=== PATIENT | male | born 1950 | race Caucasian/White ===

== ENCOUNTER 2017-12-15 19:18 | Inpatient (IN) | payer MEDICARE, OTHER ==
[~2017-12-15] VITALS: Ht 185.4 cm; Wt 79.8 kg
[2017-12-15 20:00] VITALS: BP 105/53
[2017-12-15 20:00] LABS: BASOPHILS # (AUTO) 0.1 K/uL (0.0-8.0); BASOPHILS % (AUTO) 0.9 % (0.0-2.0); EOSINOPHILS # (AUTO) 0.1 K/uL (0.0-0.7); EOSINOPHILS % (AUTO) 0.8 % (0.0-7.0); HEMATOCRIT 42.1 % (36.7-47.1); HEMOGLOBIN 14.4 g/dL (12.5-16.3); LYMPHOCYTES # (AUTO) 1.5 K/uL (20.0-40.0); LYMPHOCYTES % (AUTO) 17.7 % (20.5-51.5); MEAN CORPUSCULAR HEMOGLOBIN 32.1 uug (23.8-33.4); MEAN CORPUSCULAR HGB CONC 34 g/dL (32.5-36.3); MEAN CORPUSCULAR VOLUME 93.5 fL (73.0-96.2); MONOCYTES # (AUTO) 0.7 K/uL (2.0-10.0); MONOCYTES % (AUTO) 8.5 % (0.0-11.0); NEUTROPHILS # (AUTO) 6.1 K/uL (1.8-8.9); NEUTROPHILS % (AUTO) 72.1 % (38.5-71.5); PLATELET COUNT (AUTO) 206 K/uL (152-348); WHITE BLOOD COUNT (AUTO) 8.4 K/uL (3.6-10.2)
[2017-12-15 20:08] LABS: CARBON DIOXIDE 24 mmol/L (21-32); CHLORIDE 104 mmol/L (98-107); CREATININE 0.9 mg/dL (0.6-1.3); GLUCOSE 115 mg/dL (74-106); POTASSIUM 3.1 mmol/L (3.5-5.1); UREA NITROGEN, BLOOD 6 mg/dL (7-18)
[2017-12-15] MEDS ORDERED: DIPH50CA37 GT (20:12)
[2017-12-15] MEDS ORDERED: ACET-2154 PO (20:12)
[2017-12-15] MEDS ORDERED: HYDR12.5 PO (20:12)
[2017-12-15] MEDS ORDERED: ATOR40TA PO (20:12)
[2017-12-15] MEDS ORDERED: CHOL10002 PO (20:12)
[2017-12-15] MEDS ORDERED: PENT400T12 PO (20:12)
[2017-12-15] MEDS ORDERED: OLAN15TA3 PO (20:12)
[2017-12-15] MEDS ORDERED: TERA2CAP4 PO (20:12)
[2017-12-15] MEDS ORDERED: BUPROPION HCL PO (20:12)
[2017-12-15] MEDS ORDERED: SENN-18 PO (20:12)
[2017-12-15 20:13] LABS: ALANINE AMINOTRANSFERASE 12 U/L (16-63); ALKALINE PHOSPHATASE 83 U/L (50-136); ASPARTATE AMINOTRANSFERASE 9 U/L (15-37); BILIRUBIN,DIRECT 0.2 mg/dL (0.0-0.2); BILIRUBIN,TOTAL 0.5 mg/dL (0.2-1.0); TOTAL PROTEIN, SERUM 6.7 g/dL (6.4-8.2)
[2017-12-15 20:15] LABS: ACETAMINOPHEN < 2.0 ug/mL (10-30)
[2017-12-15 20:16] LABS: ETHANOL < 3 MG/DL (0-0)
[2017-12-15 20:18] LABS: *BILIRUBIN,URIN NEGATIVE (NEGATIVE); *BLOOD, URINE NEGATIVE (NEGATIVE); *CLARITY,URINE CLEAR (CLEAR); *COLOR,URINE YELLOW (YELLOW); *KETONES,URINE NEGATIVE (NEGATIVE); *PROTEIN,URINE NEGATIVE (NEGATIVE); LEUKOCYTE ESTERASE ,URINE NEGATIVE (NEGATIVE); NITRITE, URINE NEGATIVE (NEGATIVE); UGLUCOSE NEGATIVE (NEGATIVE)
[2017-12-15 20:24] LABS: RBC,URINE 0-3 /HPF (0-3); WBC,URINE NONE SEEN /HPF (0-3)
[2017-12-15 20:29] LABS: *AMPHETAMINE, URINE NEGATIVE (NEGATIVE); *BARBITURATE, URINE NEGATIVE (NEGATIVE); *CANNABINOID, URINE NEGATIVE (NEGATIVE); *COCCAINE, URINE NEGATIVE (NEGATIVE); *OPIATE, URINE NEGATIVE (NEGATIVE); *PHENCYCLIDINE SCREEN,URINE NEGATIVE (NEGATIVE)
[2017-12-15] MEDS ORDERED: POTASSIUM CHLORIDE 10 MEQ TAB.PRT.SR PO ONE (20:30)
[2017-12-15] MEDS ORDERED: POTASSIUM CHLORIDE 10 MEQ TAB.PRT.SR ONE (20:40)
[2017-12-15] MEDS ORDERED: MAG HYDROX/AL HYDROX/SIMETH 30 ML LIQUID UDC PO PRN (21:30)
[2017-12-15] MEDS ORDERED: MAGNESIUM HYDROXIDE 30 ML LIQUID UDC PO PRN (21:30)
[2017-12-15] MEDS: CLONAZEPAM 0.5 MG TABLET PO PRN (21:49)
[2017-12-15] MEDS ORDERED: SENNOSIDES 1 TABLET PO PRN (23:00)
[2017-12-16 01:34] VITALS: BP 105/53
[2017-12-16 07:30] VITALS: BP 125/73
[2017-12-16] MEDS: HYDROCHLOROTHIAZIDE 12.5 MG CAPSULE PO SCH ×2 (08:25→08:57)
[2017-12-16] MEDS: CHOLECALCIFEROL 1,000 UNIT TABLET PO SCH ×2 (08:25→08:57)
[2017-12-16] MEDS: PENTOXIFYLLINE 400 MG TABLET.SA PO SCH ×5 (08:45→16:23)
[2017-12-16 09:49] LABS: BASOPHILS # (AUTO) 0.1 K/uL (0.0-8.0); BASOPHILS % (AUTO) 0.8 % (0.0-2.0); EOSINOPHILS # (AUTO) 0.1 K/uL (0.0-0.7); EOSINOPHILS % (AUTO) 1.2 % (0.0-7.0); HEMATOCRIT 43.9 % (36.7-47.1); HEMOGLOBIN 15.2 g/dL (12.5-16.3); LYMPHOCYTES # (AUTO) 1.4 K/uL (20.0-40.0); MEAN CORPUSCULAR HEMOGLOBIN 32.6 uug (23.8-33.4); MEAN CORPUSCULAR HGB CONC 35 g/dL (32.5-36.3); MEAN CORPUSCULAR VOLUME 94.1 fL (73.0-96.2); MONOCYTES # (AUTO) 0.5 K/uL (2.0-10.0); MONOCYTES % (AUTO) 6.9 % (0.0-11.0); NEUTROPHILS # (AUTO) 5.6 K/uL (1.8-8.9); NEUTROPHILS % (AUTO) 73.1 % (38.5-71.5); PLATELET COUNT (AUTO) 224 K/uL (152-348); RED BLOOD CELL COUNT(AUTO) 4.67 MIL/uL (4.06-5.63); WHITE BLOOD COUNT (AUTO) 7.6 K/uL (3.6-10.2)
[2017-12-16 10:15] LABS: THYROID STIMULATING HORMONE 0.982 mIU/mL (0.358-3.740)
[2017-12-16 10:30] LABS: BILIRUBIN,TOTAL 0.6 mg/dL (0.2-1.0); CREATININE 1.1 mg/dL (0.6-1.3); POTASSIUM 3.8 mmol/L (3.5-5.1); TOTAL PROTEIN, SERUM 6.9 g/dL (6.4-8.2)
[2017-12-16] MEDS: DIVALPROEX 250 MG TABLET.DR PO SCH ×3 (11:13→16:23)
[2017-12-16 16:03] VITALS: BP 138/59
[2017-12-16] MEDS ORDERED: NEUTRA PHOS PACKET PO ONE (16:45)
[2017-12-16 20:22] VITALS: BP 167/71
[2017-12-16] MEDS ORDERED: OLANZAPINE 5 MG TABLET PO SCH (21:00)
[2017-12-16] MEDS: TERAZOSIN 1 MG CAPSULE PO SCH (21:07)
[2017-12-16] MEDS ORDERED: ATORVASTATIN 40 MG TABLET ONE (21:24)
[2017-12-16] MEDS: ATORVASTATIN 40 MG TABLET PO SCH (21:25)
[2017-12-17 07:30] VITALS: BP 165/85
[2017-12-17] MEDS: DIVALPROEX 250 MG TABLET.DR PO SCH (08:49)
[2017-12-17] MEDS: HYDROCHLOROTHIAZIDE 12.5 MG CAPSULE PO SCH (08:50)
[2017-12-17] MEDS: CHOLECALCIFEROL 1,000 UNIT TABLET PO SCH (08:50)
[2017-12-17] MEDS: PENTOXIFYLLINE 400 MG TABLET.SA PO SCH ×3 (08:50→17:00)
[2017-12-17] MEDS ORDERED: OLANZAPINE 10 MG VIAL IM ONE (09:30)
[2017-12-17] MEDS ORDERED: LORAZEPAM 2 MG/1 ML VIAL IM ONE (09:30)
[2017-12-17] MEDS ORDERED: CLONIDINE HCL 0.1 MG TABLET PO PRN (10:45)
[2017-12-17] MEDS: DIVALPROEX 500 MG TABLET.DR PO SCH ×2 (12:47→17:06)
[2017-12-17] MEDS ORDERED: DIVALPROEX 250 MG TABLET.DR PO SCH (13:00)
[2017-12-17 16:00] VITALS: BP_SYST 68
[2017-12-17 21:38] VITALS: BP 140/64
[2017-12-17] MEDS: TERAZOSIN 1 MG CAPSULE PO SCH (21:52)
[2017-12-17] MEDS: ATORVASTATIN 40 MG TABLET PO SCH (21:52)
[2017-12-17] MEDS: OLANZAPINE 5 MG TABLET PO SCH (21:53)
[2017-12-17] MEDS: TEMAZEPAM 7.5 MG CAPSULE PO PRN (22:19)
[2017-12-18 07:30] VITALS: BP 135/81
[2017-12-18] MEDS: DIVALPROEX 500 MG TABLET.DR PO SCH ×3 (08:39→17:25)
[2017-12-18] MEDS: PENTOXIFYLLINE 400 MG TABLET.SA PO SCH ×3 (08:47→17:00)
[2017-12-18] MEDS: CHOLECALCIFEROL 1,000 UNIT TABLET PO SCH (08:47)
[2017-12-18] MEDS: HYDROCHLOROTHIAZIDE 12.5 MG CAPSULE PO SCH (08:47)
[2017-12-18 15:46] VITALS: BP 166/86
[2017-12-18] MEDS: CLONAZEPAM 0.5 MG TABLET PO PRN (17:24)
[2017-12-18] MEDS: ATORVASTATIN 40 MG TABLET PO SCH (20:37)
[2017-12-18] MEDS: OLANZAPINE 5 MG TABLET PO SCH (20:37)
[2017-12-18] MEDS: TERAZOSIN 1 MG CAPSULE PO SCH (20:37)
[2017-12-18 21:43] VITALS: BP 125/72
[2017-12-19] MEDS: TEMAZEPAM 7.5 MG CAPSULE PO PRN ×2 (01:19→23:34)
[2017-12-19] MEDS: ACETAMINOPHEN 325 MG TABLET PO PRN (01:19)
[2017-12-19 07:30] VITALS: BP 117/64
[2017-12-19] MEDS: DIVALPROEX 500 MG TABLET.DR PO SCH ×3 (08:32→17:30)
[2017-12-19] MEDS: PENTOXIFYLLINE 400 MG TABLET.SA PO SCH ×3 (08:41→17:00)
[2017-12-19] MEDS: CHOLECALCIFEROL 1,000 UNIT TABLET PO SCH (08:41)
[2017-12-19] MEDS: HYDROCHLOROTHIAZIDE 12.5 MG CAPSULE PO SCH (08:41)
[2017-12-19 15:41] VITALS: BP 152/73
[2017-12-19 20:00] VITALS: BP 140/60
[2017-12-19] MEDS: OLANZAPINE 5 MG TABLET PO SCH (20:57)
[2017-12-19] MEDS: ATORVASTATIN 40 MG TABLET PO SCH (21:00)
[2017-12-19] MEDS: TERAZOSIN 1 MG CAPSULE PO SCH (21:00)
[2017-12-20 07:28] LABS: BASOPHILS % (AUTO) 0.6 % (0.0-2.0); EOSINOPHILS # (AUTO) 0.3 K/uL (0.0-0.7); EOSINOPHILS % (AUTO) 3.2 % (0.0-7.0); HEMATOCRIT 44.6 % (36.7-47.1); LYMPHOCYTES # (AUTO) 2.2 K/uL (20.0-40.0); LYMPHOCYTES % (AUTO) 27.3 % (20.5-51.5); MEAN CORPUSCULAR HEMOGLOBIN 31.8 uug (23.8-33.4); MEAN CORPUSCULAR HGB CONC 34 g/dL (32.5-36.3); MEAN CORPUSCULAR VOLUME 94.5 fL (73.0-96.2); MONOCYTES # (AUTO) 0.6 K/uL (2.0-10.0); NEUTROPHILS # (AUTO) 4.9 K/uL (1.8-8.9); NEUTROPHILS % (AUTO) 61.9 % (38.5-71.5); PLATELET COUNT (AUTO) 230 K/uL (152-348); RED BLOOD CELL COUNT(AUTO) 4.72 MIL/uL (4.06-5.63); WHITE BLOOD COUNT (AUTO) 7.9 K/uL (3.6-10.2)
[2017-12-20 07:30] VITALS: BP 157/84
[2017-12-20 07:44] LABS: BILIRUBIN,TOTAL 0.4 mg/dL (0.2-1.0); PHOSPHOROUS 3.1 mg/dL (2.5-4.9); POTASSIUM 4.3 mmol/L (3.5-5.1); TOTAL PROTEIN, SERUM 7.1 g/dL (6.4-8.2)
[2017-12-20] MEDS: DIVALPROEX 500 MG TABLET.DR PO SCH ×3 (08:48→17:39)
[2017-12-20] MEDS: PENTOXIFYLLINE 400 MG TABLET.SA PO SCH ×3 (08:51→17:00)
[2017-12-20] MEDS: CHOLECALCIFEROL 1,000 UNIT TABLET PO SCH (08:51)
[2017-12-20] MEDS: HYDROCHLOROTHIAZIDE 12.5 MG CAPSULE PO SCH (08:51)
[2017-12-20 15:50] VITALS: BP 172/81
[2017-12-20] MEDS ORDERED: CLONIDINE-TTS 1 PATCH TD SCH (16:30)
[2017-12-20 21:24] VITALS: BP 149/82
[2017-12-20] MEDS: OLANZAPINE 5 MG TABLET PO SCH (21:32)
[2017-12-20] MEDS: ATORVASTATIN 40 MG TABLET PO SCH (21:32)
[2017-12-20] MEDS: TERAZOSIN 1 MG CAPSULE PO SCH (21:32)
[2017-12-21] MEDS: TEMAZEPAM 7.5 MG CAPSULE PO PRN (01:11)
[2017-12-21] MEDS: ACETAMINOPHEN 325 MG TABLET PO PRN (01:11)
[2017-12-21 07:30] VITALS: BP 144/76
[2017-12-21] MEDS: PENTOXIFYLLINE 400 MG TABLET.SA PO SCH ×3 (09:00→17:20)
[2017-12-21] MEDS: HYDROCHLOROTHIAZIDE 12.5 MG CAPSULE PO SCH (09:00)
[2017-12-21] MEDS: CHOLECALCIFEROL 1,000 UNIT TABLET PO SCH (09:00)
[2017-12-21] MEDS: DIVALPROEX 500 MG TABLET.DR PO SCH ×3 (09:10→17:20)
[2017-12-21 16:49] VITALS: BP 134/92
[2017-12-21 19:30] VITALS: BP 144/71
[2017-12-21] MEDS: ATORVASTATIN 40 MG TABLET PO SCH (21:37)
[2017-12-21] MEDS: OLANZAPINE 5 MG TABLET PO SCH (21:37)
[2017-12-21] MEDS: TERAZOSIN 1 MG CAPSULE PO SCH (21:38)
[2017-12-22 07:30] VITALS: BP 156/88
[2017-12-22] MEDS: PENTOXIFYLLINE 400 MG TABLET.SA PO SCH ×3 (08:23→16:10)
[2017-12-22] MEDS: HYDROCHLOROTHIAZIDE 12.5 MG CAPSULE PO SCH ×2 (08:23→08:30)
[2017-12-22] MEDS: DIVALPROEX 500 MG TABLET.DR PO SCH ×3 (08:23→16:10)
[2017-12-22] MEDS: CHOLECALCIFEROL 1,000 UNIT TABLET PO SCH ×2 (08:23→08:30)
[2017-12-22 15:48] VITALS: BP 147/66
[2017-12-22 19:30] VITALS: BP 157/79
[2017-12-22] MEDS: OLANZAPINE 5 MG TABLET PO SCH (20:45)
[2017-12-22] MEDS: ATORVASTATIN 40 MG TABLET PO SCH (20:46)
[2017-12-22] MEDS: TERAZOSIN 1 MG CAPSULE PO SCH (20:50)
[2017-12-23] MEDS: TEMAZEPAM 7.5 MG CAPSULE PO PRN (01:32)
[2017-12-23 07:30] VITALS: BP 163/79
[2017-12-23] MEDS: PENTOXIFYLLINE 400 MG TABLET.SA PO SCH ×3 (09:00→18:15)
[2017-12-23] MEDS: CHOLECALCIFEROL 1,000 UNIT TABLET PO SCH (09:00)
[2017-12-23] MEDS: HYDROCHLOROTHIAZIDE 12.5 MG CAPSULE PO SCH (09:57)
[2017-12-23] MEDS: DIVALPROEX 500 MG TABLET.DR PO SCH ×3 (09:57→18:15)
[2017-12-23 15:00] VITALS: BP 162/67
[2017-12-23 19:58] VITALS: BP 147/71
[2017-12-23] MEDS: OLANZAPINE 5 MG TABLET PO SCH (20:35)
[2017-12-23] MEDS: ATORVASTATIN 40 MG TABLET PO SCH (20:35)
[2017-12-23] MEDS: TERAZOSIN 1 MG CAPSULE PO SCH (20:41)
[2017-12-24] MEDS: CLONAZEPAM 0.5 MG TABLET PO PRN (03:23)
[2017-12-24] MEDS: DIVALPROEX 500 MG TABLET.DR PO SCH ×2 (08:36→13:09)
[2017-12-24] MEDS: CHOLECALCIFEROL 1,000 UNIT TABLET PO SCH (08:39)
[2017-12-24] MEDS: HYDROCHLOROTHIAZIDE 12.5 MG CAPSULE PO SCH (08:39)
[2017-12-24] MEDS: PENTOXIFYLLINE 400 MG TABLET.SA PO SCH ×2 (08:39→13:00)
[2017-12-24 09:03] VITALS: BP 100/72
[2017-12-24 10:39] VITALS: BP 100/72
== END 2017-12-24 13:15 | DRG 885 ==
LOC: ER 19:21 → GPS 20:57
PROVIDERS: ADMIT Psychiatry & Neurology Psychiatry; ATTEND Nurse Practitioner Acute Care
DX: F25.9 Schizoaffective disorder, unspecified (principal); E44.0 Moderate protein-calorie malnutrition; F31.9 Bipolar disorder, unspecified; E78.5 Hyperlipidemia, unspecified; E83.39 Other disorders of phosphorus metabolism; E87.6 Hypokalemia; F17.200 Nicotine dependence, unspecified, uncomplicated; I10 Essential (primary) hypertension; N40.0 Benign prostatic hyperplasia without lower urinary tract symptoms; Z91.14 Patient's other noncompliance with medication regimen; R73.9 Hyperglycemia, unspecified; Z68.23 Body mass index [BMI] 23.0-23.9, adult; W34.00XS Accidental discharge from unspecified firearms or gun, sequela
CPT/HCPCS: 36415; 80164; 80307; 83735; 84100; 84443; 85025; A4663; G0480; G0480-TC; J2060; J2358; J3490

== ENCOUNTER 2020-08-08 16:46 | Inpatient (IN) | payer MEDICARE, OTHER ==
[~2020-08-08] VITALS: Ht 182.9 cm; Wt 69.4 kg
[~2020-08-08 16:46] MED LIST: ACET-2154 PO; ATOR40TA PO; BUPROPION HCL PO; CHOL10002 PO; DIPH50CA37 GT; HYDR12.5 PO; OLAN15TA3 PO; PENT400T17 PO; SENN-18 PO; TERA2CAP4 PO
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
[2020-08-08] MEDS ORDERED: LORAZEPAM 2 MG/1 ML VIAL IM ONE (17:00)
[2020-08-08] MEDS ORDERED: NICOTINE POLACRILEX PO (17:15)
[2020-08-08] MEDS ORDERED: DIVA500T54 PO (17:15)
[2020-08-08] MEDS ORDERED: LORAZEPAM 2 MG/1 ML VIAL ONE (17:27)
[2020-08-08] MEDS ORDERED: ZIPRASIDONE MESYLATE 20 MG VIAL IM ONE (17:45)
--- NOTE | 2020-08-08 17:45 | NUR ---
wrist restraints removed at this time, no behaviors noted
[2020-08-08 17:53] LABS: *BILIRUBIN,URIN NEGATIVE (NEGATIVE); *BLOOD, URINE NEGATIVE (NEGATIVE); *CLARITY,URINE CLEAR (CLEAR); *COLOR,URINE YELLOW (YELLOW); *KETONES,URINE NEGATIVE (NEGATIVE); *UROBILINOGEN,URINE 0.2 E.U./dl (NORMAL); LEUKOCYTE ESTERASE ,URINE NEGATIVE (NEGATIVE); NITRITE, URINE NEGATIVE (NEGATIVE); PH,URINE 5.5 (5.0-8.0); UGLUCOSE NEGATIVE (NEGATIVE)
[2020-08-08 17:59] LABS: *AMPHETAMINE, URINE POSITIVE (NEGATIVE); *CANNABINOID, URINE NEGATIVE (NEGATIVE); *COCCAINE, URINE NEGATIVE (NEGATIVE); *OPIATE, URINE NEGATIVE (NEGATIVE); *PHENCYCLIDINE SCREEN,URINE NEGATIVE (NEGATIVE)
[2020-08-08 19:05] LABS: BASOPHILS % (AUTO) 0.8 % (0.0-2.0); EOSINOPHILS # (AUTO) 0.1 K/uL (0.0-0.7); EOSINOPHILS % (AUTO) 1.4 % (0.0-7.0); HEMATOCRIT 48.4 % (36.7-47.1); HEMOGLOBIN 15.5 g/dL (12.5-16.3); LYMPHOCYTES # (AUTO) 1.3 K/uL (20.0-40.0); LYMPHOCYTES % (AUTO) 25.3 % (20.5-51.5); MEAN CORPUSCULAR HGB CONC 32 g/dL (32.5-36.3); MEAN CORPUSCULAR VOLUME 96.7 fL (73.0-96.2); MONOCYTES # (AUTO) 0.4 K/uL (2.0-10.0); MONOCYTES % (AUTO) 7.6 % (0.0-11.0); NEUTROPHILS # (AUTO) 3.4 K/uL (1.8-8.9); NEUTROPHILS % (AUTO) 64.9 % (38.5-71.5); PLATELET COUNT (AUTO) 175 K/uL (152-348); RED BLOOD CELL COUNT(AUTO) 5.01 MIL/uL (4.06-5.63); WHITE BLOOD COUNT (AUTO) 5.3 K/uL (3.6-10.2)
[2020-08-08 19:07] LABS: CARBON DIOXIDE 23 mmol/L (21-32); CHLORIDE 104 mmol/L (98-107); CREATININE 1.1 mg/dL (0.6-1.3); GLUCOSE 88 mg/dL (74-106); POTASSIUM 3.1 mmol/L (3.5-5.1); UREA NITROGEN, BLOOD 19 mg/dL (7-18)
[2020-08-08 19:09] LABS: ETHANOL < 3 MG/DL (0-0)
[2020-08-08 19:24] LABS: ALANINE AMINOTRANSFERASE 20 U/L (16-63); ALKALINE PHOSPHATASE 76 U/L (50-136); ASPARTATE AMINOTRANSFERASE 16 U/L (15-37); BILIRUBIN,DIRECT 0.2 mg/dL (0.0-0.2); BILIRUBIN,TOTAL 0.5 mg/dL (0.2-1.0); TOTAL PROTEIN, SERUM 6.7 g/dL (6.4-8.2)
[2020-08-08 19:25] LABS: ACETAMINOPHEN < 2.0 ug/mL (10-30)
--- NOTE | 2020-08-08 20:10 | NUR ---
Patient is medically cleared per Dr. Jiménez. Paged PET team for evaluation. Genet THIBODEAUX ETA 1 hour.
--- NOTE | 2020-08-08 21:46 | NUR ---
Genet THIBODEAUX at bedside for PET evaluation.
--- NOTE | 2020-08-08 23:17 | NUR ---
Pt. admitted to Med/Surg, under care of Dr. Dudley/Gunnar MRSA swab done.
[2020-08-08] MEDS ORDERED: ACETAMINOPHEN 325 MG TABLET PO PRN (23:30)
[2020-08-08] MEDS ORDERED: MAGNESIUM HYDROXIDE 30 ML LIQUID UDC PO PRN (23:30)
[2020-08-08] MEDS ORDERED: MAG HYDROX/AL HYDROX/SIMETH 30 ML LIQUID UDC PO PRN (23:30)
[2020-08-08] MEDS ORDERED: BLOOD SUGAR DIAGNOSTIC 1 EACH STRIP VI ONE (23:30)
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
[2020-08-09 00:12] VITALS: BP 127/83
--- NOTE | 2020-08-09 06:34 | NUR ---
PT SLEPT 5.3 H.PT COOPERATIVE WITH CARE. SAFETY AND COMFORT PROVIDED. ALL NEEDS ARE MET. WILL ENDORSE TO INCOMING NURSE FOR CONTINUITY OF CARE.
[2020-08-09 07:21] LABS: BILIRUBIN,TOTAL 0.5 mg/dL (0.2-1.0); POTASSIUM 3.7 mmol/L (3.5-5.1); TOTAL PROTEIN, SERUM 6.5 g/dL (6.4-8.2)
[2020-08-09 07:30] VITALS: BP 134/78
--- NOTE | 2020-08-09 08:00 | NUR ---
Awake, alert oriented x 3, compliant with taking of medications
[2020-08-09] MEDS: HYDROCHLOROTHIAZIDE 12.5 MG CAPSULE PO SCH (09:17)
[2020-08-09] MEDS: NICOTINE 14 MG/24HR PATCH TD SCH (09:17)
--- NOTE | 2020-08-09 09:25 | NUR ---
Firearms Report: Web Operations Lead completed and submitted a [employer] firearms report for 5150 grave disability certification. A copy of report has been placed in patient chart.
--- NOTE | 2020-08-09 10:32 | NUR ---
Initial Discharge Plan: [place] [address];([phone]). This SW contacted admin [facility] ([phone]) who stated that patient would need to be stable to return back. This SW attempted to contact public guardian office and spoke with Caity who stated that Mary ([phone]) is the LPS conservator. This SW requested for documents to be faxed and it was faxed. This SW placed it in patient's charge. Caity stated that [facility] sent detain and treat and will fax it to the nurse. JACQUIE will coordinate with the treatment team for dc. Addendum: 08/09/20 at 1033 by JACQUIE OSORIO Initial Discharge Plan: [place] [address];([phone]). This SW contacted admin [facility] ([phone]) who stated that patient would need to be stable to return back. This SW attempted to contact public guardian office and spoke with Caity who stated that Mary ([phone]) is the LPS conservator. This SW requested for documents to be faxed and it was faxed. This SW placed it in patient's chart. Caity stated that [facility] sent detain and treat and will fax it to the nurse. JACQUIE will coordinate with the treatment team for dc.
--- NOTE | 2020-08-09 10:33 | NUR ---
Facility Contact: This SW contacted admin Ladi ([phone]) from patient's assisted living called [facility] who stated that patient would need to be stable to return back.
--- NOTE | 2020-08-09 10:34 | NUR ---
Substance Abuse Intervention: Patient was provided with a brief substance abuse intervention and referred to [facility] ([phone]), [facility] ([phone]), and [facility] ([phone]).
--- NOTE | 2020-08-09 10:34 | NUR ---
LPS Conservator: This SW attempted to contact public guardian office and spoke with Caity who stated that Mary ([phone]) is the LPS conservator. This SW requested for documents to be faxed and it was faxed. This SW placed it in patient's chart. Caity stated that [facility] sent detain and treat and will fax it to the nurse.
--- NOTE | 2020-08-09 11:37 | NUR ---
Individual Therapy: dock worker met with patient for brief counseling and assessed for patient's presenting problem aggressive behavior. Patient appeared labile and manic. Patient's speech appeared unclear and was rambling. Patient is alert and oriented to self. Patient unable to have proper conversation due to confusion. This SW unable to conduct therapy at this time.
--- NOTE | 2020-08-09 11:48 | NUR ---
LPS Conservator: This SW spoke with patient's LPS conservator Mary ([phone]) and discussed treatment and discharge planning. Per Mary, she stated that she would want pt to return to [facility], however, this SW explained that assisted living would have to assess patient upon dc. This SW discussed placement options if pt cannot go back to Assisted Living she said we will take it day by day. Mary stated she has not received the detain and treat. This SW faxed it to ([phone]) and she will fax it back to this SW.
--- NOTE | 2020-08-09 12:34 | NUR ---
Detain and Treat: This SW received Detain and Treat authorization from [facility] Howie Hernandez ([phone]) and placed it in patient's chart.
[2020-08-09 16:00] VITALS: BP 131/74
[2020-08-09] MEDS: BENZTROPINE MESYLATE 0.5 MG TABLET PO SCH (18:47)
[2020-08-09] MEDS: HALOPERIDOL 2 MG TABLET PO SCH (18:47)
[2020-08-09] MEDS: OLANZAPINE 5 MG TABLET PO SCH (18:47)
[2020-08-09 20:26] VITALS: BP 128/72
[2020-08-09] MEDS: ATORVASTATIN 40 MG TABLET PO SCH (21:00)
[2020-08-09] MEDS: PENTOXIFYLLINE 400 MG TABLET.SA PO SCH (21:00)
[2020-08-09] MEDS: TERAZOSIN 1 MG CAPSULE PO SCH (21:00)
--- NOTE | 2020-08-10 06:49 | NUR ---
PAtient slept 7 hrs.Non compliant.Unkempt.REfused his medication last night.
[2020-08-10 07:30] VITALS: BP 127/60
[2020-08-10] MEDS: OLANZAPINE 5 MG TABLET PO SCH ×3 (08:44→17:31)
[2020-08-10] MEDS: BENZTROPINE MESYLATE 0.5 MG TABLET PO SCH ×3 (08:44→17:31)
[2020-08-10] MEDS: HYDROCHLOROTHIAZIDE 12.5 MG CAPSULE PO SCH (08:44)
[2020-08-10] MEDS: HALOPERIDOL 2 MG TABLET PO SCH ×3 (08:44→17:31)
[2020-08-10] MEDS: NICOTINE 14 MG/24HR PATCH TD SCH (08:45)
--- NOTE | 2020-08-10 11:29 | NUR ---
Individual Therapy: home mission worker met with patient for brief counseling and assessed for patient's presenting problem aggressive behavior. Patient appeared labile. Patient's speech appeared unclear and was unable to have a proper conversation. This SW unable to conduct therapy at this time.
[2020-08-10 16:36] VITALS: BP 132/59
[2020-08-10] MEDS ORDERED: OLANZAPINE 10 MG VIAL IM PRN (17:15)
[2020-08-10] MEDS: TERAZOSIN 1 MG CAPSULE PO SCH (20:05)
[2020-08-10] MEDS: TEMAZEPAM 7.5 MG CAPSULE PO PRN (20:06)
[2020-08-10] MEDS: ATORVASTATIN 40 MG TABLET PO SCH (20:06)
[2020-08-10] MEDS: PENTOXIFYLLINE 400 MG TABLET.SA PO SCH (20:06)
[2020-08-10 20:52] VITALS: BP 153/57
--- NOTE | 2020-08-11 05:30 | NUR ---
Slept 6.0 hours.
[2020-08-11 07:30] VITALS: BP 162/81
[2020-08-11] MEDS: NICOTINE 14 MG/24HR PATCH TD SCH (09:00)
[2020-08-11] MEDS: BENZTROPINE MESYLATE 0.5 MG TABLET PO SCH ×2 (09:29→17:42)
[2020-08-11] MEDS: OLANZAPINE 5 MG TABLET PO SCH ×2 (09:29→17:42)
[2020-08-11] MEDS: HYDROCHLOROTHIAZIDE 12.5 MG CAPSULE PO SCH (09:29)
[2020-08-11] MEDS: HALOPERIDOL 2 MG TABLET PO SCH ×2 (09:29→17:42)
[2020-08-11 15:18] VITALS: BP 145/68
[2020-08-11 20:00] VITALS: BP 168/74
[2020-08-11] MEDS: PENTOXIFYLLINE 400 MG TABLET.SA PO SCH (20:28)
[2020-08-11] MEDS: CLONAZEPAM 0.5 MG TABLET PO PRN (20:28)
[2020-08-11] MEDS: ATORVASTATIN 40 MG TABLET PO SCH (21:00)
[2020-08-11] MEDS: TERAZOSIN 1 MG CAPSULE PO SCH (21:00)
--- NOTE | 2020-08-11 22:00 | NUR ---
received patient in her room in bed. he is noted sleeping but easily arousable. noted A/O x 3. he is hyperverbal, easily irritable. Patient noted with flight of ideas tangental. He denied SI/HI/AH/VH. however, he appears to have grandiose delusions. he stated that he was in the and that he won lots of metals. Patient is reassured for his safety. safety and fall precaution in place. He refused Hytrin 1mg and lipitor. he stated, "I don't have high B/P cholesterol. patient was informed of the risk of not complying with medication regiment yet refused. will continue to monitor.
[2020-08-12 07:30] VITALS: BP 131/71
[2020-08-12] MEDS: HALOPERIDOL 2 MG TABLET PO SCH ×2 (08:56→16:21)
[2020-08-12] MEDS: OLANZAPINE 5 MG TABLET PO SCH ×2 (08:56→16:21)
[2020-08-12] MEDS: NICOTINE 14 MG/24HR PATCH TD SCH (08:56)
[2020-08-12] MEDS: BENZTROPINE MESYLATE 0.5 MG TABLET PO SCH ×2 (08:56→16:22)
[2020-08-12] MEDS: HYDROCHLOROTHIAZIDE 12.5 MG CAPSULE PO SCH (08:57)
[2020-08-12] MEDS: CLONAZEPAM 0.5 MG TABLET PO PRN ×2 (09:03→16:21)
--- NOTE | 2020-08-12 09:03 | NUR ---
PT agitated and restless moving frequently in bed. Klonopin given. for agitation. will monitor patient.
--- NOTE | 2020-08-12 11:00 | NUR ---
Pt more calm and collected and less fidgeting noted. Talks calmer. Medication effective.
[2020-08-12 16:00] VITALS: BP 96/58
--- NOTE | 2020-08-12 16:30 | NUR ---
Pt requesting for klonopin again states that it made him feel less anxious and that he is getting anxious again. Klonopin given per patients request. Pt more talkative compared from am. Pt asking for his needs and wanted dinner. Dinner given. Pt has good appetite.
[2020-08-12 20:13] VITALS: BP 116/60
[2020-08-12] MEDS: ATORVASTATIN 40 MG TABLET PO SCH (20:34)
[2020-08-12] MEDS: PENTOXIFYLLINE 400 MG TABLET.SA PO SCH (20:34)
[2020-08-12] MEDS: TERAZOSIN 1 MG CAPSULE PO SCH (20:35)
[2020-08-13 07:30] VITALS: BP 118/75
[2020-08-13] MEDS: BENZTROPINE MESYLATE 0.5 MG TABLET PO SCH ×2 (08:57→16:28)
[2020-08-13] MEDS: HALOPERIDOL 2 MG TABLET PO SCH ×2 (08:57→16:28)
[2020-08-13] MEDS: OLANZAPINE 5 MG TABLET PO SCH ×2 (08:58→16:28)
[2020-08-13] MEDS: NICOTINE 14 MG/24HR PATCH TD SCH (09:00)
[2020-08-13] MEDS: HYDROCHLOROTHIAZIDE 12.5 MG CAPSULE PO SCH (09:00)
--- NOTE | 2020-08-13 10:57 | NUR ---
Individual Therapy: track repair worker met with patient for brief counseling and assessed for patient's presenting problem aggressive behavior. Patient appeared hyperverbal and speech appeared clear. This SW attempted to provide individual counseling and patient stated "I want to sleep". This SW unable to conduct individual counseling at this time.
[2020-08-13 15:32] VITALS: BP 134/77
[2020-08-13] MEDS: CLONAZEPAM 0.5 MG TABLET PO PRN (17:50)
[2020-08-13] MEDS: ATORVASTATIN 40 MG TABLET PO SCH (20:27)
[2020-08-13] MEDS: PENTOXIFYLLINE 400 MG TABLET.SA PO SCH (20:28)
[2020-08-13] MEDS: TERAZOSIN 1 MG CAPSULE PO SCH (20:28)
[2020-08-13 20:51] VITALS: BP 116/70
--- NOTE | 2020-08-14 06:07 | NUR ---
GPS: REMAIN CALM AND COOPERATIVE WITH MEDS AND CARE. SLEPT 7 HRS THROUGH THE NIGHT. NO AGITATION NOTED AT THIS TIME. CONTINUE PLAN OF CARE.
[2020-08-14 07:30] VITALS: BP 139/76
[2020-08-14] MEDS: HYDROCHLOROTHIAZIDE 12.5 MG CAPSULE PO SCH (08:44)
[2020-08-14] MEDS: OLANZAPINE 5 MG TABLET PO SCH ×2 (08:45→16:41)
[2020-08-14] MEDS: BENZTROPINE MESYLATE 0.5 MG TABLET PO SCH ×2 (08:45→16:41)
[2020-08-14] MEDS: HALOPERIDOL 2 MG TABLET PO SCH ×2 (08:45→16:41)
[2020-08-14] MEDS: NICOTINE 14 MG/24HR PATCH TD SCH (08:49)
[2020-08-14 16:00] VITALS: BP 136/64
[2020-08-14] MEDS: ATORVASTATIN 40 MG TABLET PO SCH (20:19)
[2020-08-14] MEDS: CLONAZEPAM 0.5 MG TABLET PO PRN (20:19)
[2020-08-14] MEDS: PENTOXIFYLLINE 400 MG TABLET.SA PO SCH (20:19)
[2020-08-14] MEDS: TERAZOSIN 1 MG CAPSULE PO SCH (20:20)
[2020-08-14 20:47] VITALS: BP 120/61
[2020-08-14] MEDS: TEMAZEPAM 7.5 MG CAPSULE PO PRN (21:40)
--- NOTE | 2020-08-15 06:12 | NUR ---
Received patient in his room, internally preoccupied, but calm. Patient is medication compliant and oriented x3. Patient is labile ,at times, and will yell at staff or roommates with no provocation. Patient slept 8.30 hours. Continuing to monitor for safety and behavior escalation.
[2020-08-15 07:30] VITALS: BP 124/76
[2020-08-15] MEDS: HALOPERIDOL 2 MG TABLET PO SCH ×2 (09:02→16:42)
[2020-08-15] MEDS: BENZTROPINE MESYLATE 0.5 MG TABLET PO SCH ×2 (09:02→16:42)
[2020-08-15] MEDS: HYDROCHLOROTHIAZIDE 12.5 MG CAPSULE PO SCH (09:02)
[2020-08-15] MEDS: OLANZAPINE 5 MG TABLET PO SCH ×2 (09:03→16:42)
[2020-08-15] MEDS: NICOTINE 14 MG/24HR PATCH TD SCH (09:03)
[2020-08-15 16:00] VITALS: BP 136/66
[2020-08-15] MEDS: ENSURE ENLIVE (VAN) 240 ML LIQUID PO SCH (16:42)
[2020-08-15] MEDS: TEMAZEPAM 7.5 MG CAPSULE PO PRN (20:51)
[2020-08-15] MEDS: TERAZOSIN 1 MG CAPSULE PO SCH (20:52)
[2020-08-15] MEDS: PENTOXIFYLLINE 400 MG TABLET.SA PO SCH (20:53)
[2020-08-15] MEDS: ATORVASTATIN 40 MG TABLET PO SCH (20:53)
[2020-08-15 21:16] VITALS: BP 155/72
--- NOTE | 2020-08-15 21:45 | NUR ---
THE PATIENT RECEIVED IN BED AWAKE. THE PATIENT IS ALERT/ORIENTED X 2, DISORGANIZED PATIENT IS EASILY IRRITABLE AND AGITATED. PATIENT DENIES SI PATIENT IS ABLE TO MAKE NEEDS KNOWN. PATIENT REFUSED HS MEDICATION "I AM GOING TO CALL THE FBI ON YOU." PATIENT WANTED A SLEEPING PILL, GIVEN ORDERED. NO AGGRESSIVE OR COMBATIVE BEHAVIOR NOTED. SAFE ENVIRONMENT PROVIDED. BED IN LOWEST POSITION AND BED LOCKED.
[2020-08-16 07:30] VITALS: BP 125/74
[2020-08-16] MEDS: ENSURE ENLIVE (VAN) 240 ML LIQUID PO SCH ×2 (08:00→17:05)
[2020-08-16 08:17] LABS: BASOPHILS # (AUTO) 0.1 K/uL (0.0-8.0); BASOPHILS % (AUTO) 0.9 % (0.0-2.0); EOSINOPHILS # (AUTO) 0.2 K/uL (0.0-0.7); EOSINOPHILS % (AUTO) 3.5 % (0.0-7.0); HEMATOCRIT 46.1 % (36.7-47.1); HEMOGLOBIN 15.7 g/dL (12.5-16.3); LYMPHOCYTES # (AUTO) 1.8 K/uL (20.0-40.0); LYMPHOCYTES % (AUTO) 30.8 % (20.5-51.5); MEAN CORPUSCULAR HEMOGLOBIN 31.7 uug (23.8-33.4); MEAN CORPUSCULAR HGB CONC 34 g/dL (32.5-36.3); MONOCYTES # (AUTO) 0.5 K/uL (2.0-10.0); MONOCYTES % (AUTO) 7.9 % (0.0-11.0); NEUTROPHILS # (AUTO) 3.3 K/uL (1.8-8.9); NEUTROPHILS % (AUTO) 56.9 % (38.5-71.5); PLATELET COUNT (AUTO) 214 K/uL (152-348); RED BLOOD CELL COUNT(AUTO) 4.96 MIL/uL (4.06-5.63); WHITE BLOOD COUNT (AUTO) 5.8 K/uL (3.6-10.2)
[2020-08-16 08:48] LABS: THYROID STIMULATING HORMONE 1.997 mIU/mL (0.358-3.740)
[2020-08-16] MEDS: NICOTINE 14 MG/24HR PATCH TD SCH (09:00)
[2020-08-16 09:08] LABS: BILIRUBIN,TOTAL 0.5 mg/dL (0.2-1.0); CREATININE 1.4 mg/dL (0.6-1.3); MAGNESIUM 1.9 mg/dL (1.8-2.4); PHOSPHOROUS 3.5 mg/dL (2.5-4.9); POTASSIUM 4.4 mmol/L (3.5-5.1); TOTAL PROTEIN, SERUM 7.2 g/dL (6.4-8.2)
[2020-08-16] MEDS: HALOPERIDOL 2 MG TABLET PO SCH ×2 (09:44→17:05)
[2020-08-16] MEDS: BENZTROPINE MESYLATE 0.5 MG TABLET PO SCH ×2 (09:44→17:05)
[2020-08-16] MEDS: OLANZAPINE 5 MG TABLET PO SCH ×2 (09:44→17:05)
[2020-08-16] MEDS: HYDROCHLOROTHIAZIDE 12.5 MG CAPSULE PO SCH (09:45)
[2020-08-16 16:00] VITALS: BP 140/76
[2020-08-16] MEDS: CLONAZEPAM 0.5 MG TABLET PO PRN (17:31)
--- NOTE | 2020-08-16 18:03 | NUR ---
Gps/Vfx Artist- Isolative , quiet, covering his head w/ a blanket., offered to turned off the light, refused. roommates loudness patient claimed does not bother him. Addendum: 08/16/20 at 1808 by JIMBO ALCARAZ LVN Error in charting wrong patient
--- NOTE | 2020-08-16 18:09 | NUR ---
Gps/digital campaign manager- Responding to internal stimuli, loud, yelling , appeared to be mad at someone, when asked patient if he is ok, claimed he is fine.
[2020-08-16] MEDS: TEMAZEPAM 7.5 MG CAPSULE PO PRN (20:14)
[2020-08-16] MEDS: PENTOXIFYLLINE 400 MG TABLET.SA PO SCH (20:14)
[2020-08-16] MEDS: TERAZOSIN 1 MG CAPSULE PO SCH (20:14)
[2020-08-16] MEDS: ATORVASTATIN 40 MG TABLET PO SCH (20:14)
[2020-08-16 20:30] VITALS: BP 136/67
--- NOTE | 2020-08-17 05:58 | NUR ---
pt slept for 7 hours; initially non compliant with meds but tooke his meds eventually; safety maintained; needs attended.
[2020-08-17 07:30] VITALS: BP 126/66
[2020-08-17] MEDS: ENSURE ENLIVE (VAN) 240 ML LIQUID PO SCH ×2 (08:00→17:10)
[2020-08-17 08:09] LABS: BASOPHILS # (AUTO) 0.1 K/uL (0.0-8.0); BASOPHILS % (AUTO) 2.4 % (0.0-2.0); EOSINOPHILS # (AUTO) 0.2 K/uL (0.0-0.7); EOSINOPHILS % (AUTO) 4.4 % (0.0-7.0); HEMATOCRIT 45.2 % (36.7-47.1); HEMOGLOBIN 15.2 g/dL (12.5-16.3); LYMPHOCYTES # (AUTO) 1.3 K/uL (20.0-40.0); LYMPHOCYTES % (AUTO) 27.6 % (20.5-51.5); MEAN CORPUSCULAR HGB CONC 34 g/dL (32.5-36.3); MEAN CORPUSCULAR VOLUME 92.3 fL (73.0-96.2); MONOCYTES # (AUTO) 0.4 K/uL (2.0-10.0); MONOCYTES % (AUTO) 8.3 % (0.0-11.0); NEUTROPHILS # (AUTO) 2.7 K/uL (1.8-8.9); NEUTROPHILS % (AUTO) 57.3 % (38.5-71.5); PLATELET COUNT (AUTO) 223 K/uL (152-348); WHITE BLOOD COUNT (AUTO) 4.8 K/uL (3.6-10.2)
[2020-08-17] MEDS: NICOTINE 14 MG/24HR PATCH TD SCH (09:00)
[2020-08-17 09:05] LABS: BILIRUBIN,TOTAL 0.3 mg/dL (0.2-1.0); CREATININE 1.3 mg/dL (0.6-1.3); MAGNESIUM 2.1 mg/dL (1.8-2.4); PHOSPHOROUS 3.6 mg/dL (2.5-4.9); POTASSIUM 4.8 mmol/L (3.5-5.1); TOTAL PROTEIN, SERUM 6.8 g/dL (6.4-8.2)
[2020-08-17] MEDS: HALOPERIDOL 2 MG TABLET PO SCH ×2 (09:45→16:22)
[2020-08-17] MEDS: BENZTROPINE MESYLATE 0.5 MG TABLET PO SCH ×2 (09:45→16:22)
[2020-08-17] MEDS: OLANZAPINE 5 MG TABLET PO SCH ×2 (09:45→16:22)
[2020-08-17] MEDS: HYDROCHLOROTHIAZIDE 12.5 MG CAPSULE PO SCH (09:45)
--- NOTE | 2020-08-17 10:30 | NUR ---
Gps/Fine Chemicals Operator- Noted patient bilateral great toe scanty bleeding patient stated " i tried to removed my ingrown toe nails, in bothers me", discouraged from doing so, site cleansed with NS pat dry, covered with 2x2 secured with paper tape.
[2020-08-17] MEDS: NEOMY/BACITRAC/POLYMI OINT 28.35 GM TUBE TOP SCH (12:46)
[2020-08-17 15:09] VITALS: BP 148/76
[2020-08-17 20:20] VITALS: BP 116/70
[2020-08-17] MEDS: ATORVASTATIN 40 MG TABLET PO SCH (20:49)
[2020-08-17] MEDS: PENTOXIFYLLINE 400 MG TABLET.SA PO SCH (20:50)
[2020-08-17] MEDS: TERAZOSIN 1 MG CAPSULE PO SCH (20:50)
--- NOTE | 2020-08-18 06:02 | NUR ---
GPS: Remain alert and oriented x2. patient still talking to unseen people. pt slept for 6.15 hours. safety maintained; needs attended.
[2020-08-18 07:30] VITALS: BP 125/71
[2020-08-18] MEDS: NICOTINE 14 MG/24HR PATCH TD SCH (09:00)
[2020-08-18] MEDS: BENZTROPINE MESYLATE 0.5 MG TABLET PO SCH ×2 (09:12→16:59)
[2020-08-18] MEDS: HALOPERIDOL 2 MG TABLET PO SCH ×2 (09:12→16:59)
[2020-08-18] MEDS: OLANZAPINE 5 MG TABLET PO SCH ×3 (09:12→18:42)
[2020-08-18] MEDS: NEOMY/BACITRAC/POLYMI OINT 28.35 GM TUBE TOP SCH (09:13)
[2020-08-18] MEDS: HYDROCHLOROTHIAZIDE 12.5 MG CAPSULE PO SCH (09:13)
[2020-08-18] MEDS: ENSURE ENLIVE (VAN) 240 ML LIQUID PO SCH ×2 (09:13→17:00)
[2020-08-18] MEDS: CLONAZEPAM 0.5 MG TABLET PO PRN (13:39)
[2020-08-18 16:00] VITALS: BP 123/67
[2020-08-18 20:00] VITALS: BP 104/54
[2020-08-18] MEDS: ATORVASTATIN 40 MG TABLET PO SCH (20:23)
[2020-08-18] MEDS: PENTOXIFYLLINE 400 MG TABLET.SA PO SCH (20:23)
[2020-08-18] MEDS: TERAZOSIN 1 MG CAPSULE PO SCH (20:31)
[2020-08-18 20:32] VITALS: BP 127/67
--- NOTE | 2020-08-19 06:24 | NUR ---
Gps: Remain calm and cooperative most of the night. Responding to internal stimuli, loud, yelling , appeared to be mad at someone, when asked patient if he is ok, claimed he is fine. slept 9 hrs through the night. took shower this morning. continue plan of care.
[2020-08-19 07:30] VITALS: BP 119/75
[2020-08-19] MEDS: OLANZAPINE 5 MG TABLET PO SCH ×2 (08:24→16:19)
[2020-08-19] MEDS: BENZTROPINE MESYLATE 0.5 MG TABLET PO SCH ×2 (08:25→16:19)
[2020-08-19] MEDS: HALOPERIDOL 2 MG TABLET PO SCH ×2 (08:25→16:19)
[2020-08-19] MEDS: HYDROCHLOROTHIAZIDE 12.5 MG CAPSULE PO SCH (08:25)
[2020-08-19] MEDS: NEOMY/BACITRAC/POLYMI OINT 28.35 GM TUBE TOP SCH (08:26)
[2020-08-19] MEDS: NICOTINE 14 MG/24HR PATCH TD SCH (08:28)
[2020-08-19] MEDS: ENSURE ENLIVE (VAN) 240 ML LIQUID PO SCH ×2 (08:28→16:19)
[2020-08-19 16:00] VITALS: BP 129/75
--- NOTE | 2020-08-19 20:00 | NUR ---
Received patient in his room in bed sleeping but easily arousable. He is noted A/O x 2. hyperverbal, flight of ideas. Noted less irritable, less isolative and less withdrawn. patient denied SI/HI/VH/AH. fixed on been discharged. patient is reassured for his safety. safety and fall precaution in palce. will continue to monitor
[2020-08-19 20:19] VITALS: BP 118/72
[2020-08-19] MEDS: TERAZOSIN 1 MG CAPSULE PO SCH (21:00)
[2020-08-19] MEDS: PENTOXIFYLLINE 400 MG TABLET.SA PO SCH (21:47)
[2020-08-19] MEDS: ATORVASTATIN 40 MG TABLET PO SCH (21:48)
[2020-08-20 07:06] LABS: ALBUMIN 3.1 g/dL (2.9-4.4); ALPHA-1-GLOBULIN 0.3 g/dL (0.0-0.4); ALPHA-2-GLOBULIN 0.8 g/dL (0.4-1.0); BETA GLOBULIN 1.1 g/dL (0.7-1.3); GAMMA GLOBULIN 0.9 g/dL (0.4-1.8); GLOBULIN, TOTAL 3.1 g/dL (2.2-3.9); M-SPIKE Not Observed g/dL (Not Observed)
[2020-08-20 07:22] LABS: BASOPHILS # (AUTO) 0.1 K/uL (0.0-8.0); EOSINOPHILS # (AUTO) 0.1 K/uL (0.0-0.7); EOSINOPHILS % (AUTO) 1.8 % (0.0-7.0); HEMATOCRIT 44.3 % (36.7-47.1); LYMPHOCYTES # (AUTO) 1.5 K/uL (20.0-40.0); LYMPHOCYTES % (AUTO) 20.7 % (20.5-51.5); MEAN CORPUSCULAR HEMOGLOBIN 31.1 uug (23.8-33.4); MEAN CORPUSCULAR HGB CONC 34 g/dL (32.5-36.3); MONOCYTES # (AUTO) 0.6 K/uL (2.0-10.0); MONOCYTES % (AUTO) 8.4 % (0.0-11.0); NEUTROPHILS # (AUTO) 4.9 K/uL (1.8-8.9); NEUTROPHILS % (AUTO) 68.1 % (38.5-71.5); PLATELET COUNT (AUTO) 222 K/uL (152-348); RED BLOOD CELL COUNT(AUTO) 4.82 MIL/uL (4.06-5.63); WHITE BLOOD COUNT (AUTO) 7.2 K/uL (3.6-10.2)
[2020-08-20 07:30] VITALS: BP 165/77
[2020-08-20 07:46] LABS: CREATININE 1.2 mg/dL (0.6-1.3); POTASSIUM 4.1 mmol/L (3.5-5.1)
[2020-08-20] MEDS: NICOTINE 14 MG/24HR PATCH TD SCH (08:08)
[2020-08-20] MEDS: CLONAZEPAM 0.5 MG TABLET PO PRN ×2 (08:08→17:23)
[2020-08-20] MEDS: OLANZAPINE 5 MG TABLET PO SCH ×2 (08:15→17:22)
[2020-08-20] MEDS: BENZTROPINE MESYLATE 0.5 MG TABLET PO SCH ×2 (08:15→17:23)
[2020-08-20] MEDS: HALOPERIDOL 2 MG TABLET PO SCH ×2 (08:15→17:22)
[2020-08-20] MEDS: HYDROCHLOROTHIAZIDE 12.5 MG CAPSULE PO SCH (08:15)
[2020-08-20] MEDS: NEOMY/BACITRAC/POLYMI OINT 28.35 GM TUBE TOP SCH (08:16)
[2020-08-20] MEDS: ENSURE ENLIVE (VAN) 240 ML LIQUID PO SCH ×2 (08:16→17:23)
--- NOTE | 2020-08-20 14:18 | NUR ---
JACQUIE Coordination of Care: JACQUIE spoke with Ladi broussard at from [facility] ([phone]) and confirmed she will be picking up the patient tomorrow Thursday08/21/20 at 4:30PM and taking him back to [facility]. Patients LPS conservator Mary ([phone]) is made aware of discharge plan.
[2020-08-20 15:39] VITALS: BP 121/70
[2020-08-20 20:25] VITALS: BP 148/74
[2020-08-20] MEDS: ATORVASTATIN 40 MG TABLET PO SCH (20:57)
[2020-08-20] MEDS: TERAZOSIN 1 MG CAPSULE PO SCH (20:57)
[2020-08-20] MEDS: PENTOXIFYLLINE 400 MG TABLET.SA PO SCH (20:58)
[2020-08-21 07:30] VITALS: BP 118/67
[2020-08-21] MEDS: BENZTROPINE MESYLATE 0.5 MG TABLET PO SCH ×2 (08:29→17:00)
[2020-08-21] MEDS: OLANZAPINE 5 MG TABLET PO SCH ×2 (08:29→17:00)
[2020-08-21] MEDS: CLONAZEPAM 0.5 MG TABLET PO PRN (08:29)
[2020-08-21] MEDS: HYDROCHLOROTHIAZIDE 12.5 MG CAPSULE PO SCH (08:29)
[2020-08-21] MEDS: HALOPERIDOL 2 MG TABLET PO SCH ×2 (08:29→17:00)
[2020-08-21] MEDS: ENSURE ENLIVE (VAN) 240 ML LIQUID PO SCH ×2 (08:30→17:00)
[2020-08-21] MEDS: NEOMY/BACITRAC/POLYMI OINT 28.35 GM TUBE TOP SCH (08:30)
[2020-08-21] MEDS: NICOTINE 14 MG/24HR PATCH TD SCH (08:30)
--- NOTE | 2020-08-21 09:06 | NUR ---
Discharge Note: Patient will be discharged back to [facility] [address] [place] [address];([phone]). Ladi admin at from [facility] ([phone]) will be picking up the patient today at 4:30PM. Patients [facility] conservras Hernandez ([phone]) is aware of discharge. Patient appeared alert and oriented x3, unable to provide for care, however, will be going back to his assisted living. Patient denies suicidal or homicidal ideation. Patient denies visual and auditory hallucinations. Patient will follow up with his primary doctor Dr. Jones and psychiatrist Dr. Duong at [facility]. Patient was provided referrals to the following substance abuse programs for marijuana use: [facility] ([phone]); [facility] [address] [place] [address] ([phone]); [address] [place] [address] ([phone]); [facility] ([phone]); [facility] ([phone]); [facility] ([phone]); [facility] ([phone]). Patient presents with euthymic mood and congruent affect. Addendum: 08/21/20 at 1015 by LEELA RICHARD Discharge to [facility] Canceled due to Ladi ([phone]) called this case management social worker and stated that the patient called them threatening and demanding certain items. They stated they do not want the patient back in that state.
--- NOTE | 2020-08-21 10:15 | NUR ---
JACQUIE Coordination of Care: Ladi ([phone]) called this manager social and stated that the patient called them threatening and demanding certain items. They stated they do not want the patient back in that state. JACQUIE contacted LPS conservator Mary and spoke with Caity ([phone]) who stated that Mary is not in the office and she will let her know. JACQUIE informed about discharge plan to possible SNF today and she is agreeable. JACQUIE spoke with Dr. Hernandez regarding change of discharge plan. Faxed referral to [facility] (fax: [phone]) attention to [place].
--- NOTE | 2020-08-21 11:46 | NUR ---
Discharge Note: Patient will be discharged to [facility] [address] [place] [phone] ([phone]). Patient will be provided transportation at 1:00pm via ambulance. Spoke with Manjinder the Admin Coordinator at the facility who states they are ready to accept the patient today. Patient is aware and agreeable with discharge plans. Patient is alert and oriented x3-4, is unable to plan for self-care however is willing to accept care at the facility. Patient denies any suicidal or homicidal ideation. Patient will follow-up at the facility with Psychiatrist Dr. Hernandez and Guest House Manager Dr. Bullock. Rail Manager faxed discharge packet to [facility] (fax: [phone]). Patient presents with calm mood and euthymic. [facility] haris Hernandez ([phone]) is aware of discharge, pediatric social worker spoke with Hannah. Bledsoe admin at from [facility] ([phone]) is also made aware of the discharge plan and will be following up with the patient at the facility.
--- NOTE | 2020-08-21 13:20 | NUR ---
JACQUIE LPS Contact: Patients LPS conservator Mary ([phone]) and Caity called this social media content manager requesting [place] [address] ([phone]). JACQUIE spoke with Mariel admin coordinator at the facility and faxed her patient's referral packet. They accepted the patient today and patient will be discharged there.
--- NOTE | 2020-08-21 13:46 | NUR ---
SW UPDATED Discharge Note: Patient will be discharged to [facility] [address] [place] [address] ([phone]). Patient will be provided transportation at 2:30pm via ambulance. Spoke with Mariel the Admin Coordinator at the facility who states they are ready to accept the patient today. Patient is aware and agreeable with discharge plans. Patient is alert and oriented x3-4, is unable to plan for self-care however is willing to accept care at the facility. Patient denies any suicidal or homicidal ideation. Patient will follow-up at the facility with Psychiatrist Dr. Hanna and Labor Supervisor Dr. Shaw. Patient presents with calm mood and euthymic. Patients [facility] haris Hernandez ([phone]) is aware of discharge, health care social worker spoke with Caity. Ladi admin at [facility] ([phone]) is also made aware of the discharge plan and will be following up with the patient at the facility.
[2020-08-21 16:00] VITALS: BP 140/70
--- NOTE | 2020-08-21 17:45 | NUR ---
GPS: Nursing Notes: Discharge Notes: Patient is awake and responding to his name, cooperative with nursing care, compliant with his medications, following staff directions, denies SI/HI, denies AH/VH, denies pain or discomfort, denies SOB. Discharge to [facility] at [address] [place] [address] . report given to Aneudy, RN waterworks supervisor, took all his belongings with him, transported to facility via ambulance. Patient will follow-up at the facility with Psychiatrist Dr. Hanna and Tripe Washer Dr. Shaw for aftercare at the facility. Patient's [facility] informed of discharge by social organization professor.
== END 2020-08-21 17:45 | DRG 885 ==
LOC: ER 16:49 → GPS 23:02
PROVIDERS: ADMIT Psychiatry & Neurology Psychiatry; ATTEND Internal Medicine
DX: F25.9 Schizoaffective disorder, unspecified (principal); N17.0 Acute kidney failure with tubular necrosis; E44.1 Mild protein-calorie malnutrition; E22.2 Syndrome of inappropriate secretion of antidiuretic hormone; F23 Brief psychotic disorder; J44.9 Chronic obstructive pulmonary disease, unspecified; E78.5 Hyperlipidemia, unspecified; Z20.822 Contact with and (suspected) exposure to COVID-19; E87.6 Hypokalemia; I70.0 Atherosclerosis of aorta; E86.1 Hypovolemia; I10 Essential (primary) hypertension; K63.5 Polyp of colon; Z87.891 Personal history of nicotine dependence; Z91.19 Patient's noncompliance with other medical treatment and regimen; N40.0 Benign prostatic hyperplasia without lower urinary tract symptoms; K76.0 Fatty (change of) liver, not elsewhere classified; Z91.81 History of falling; F15.10 Other stimulant abuse, uncomplicated; Z73.6 Limitation of activities due to disability; E88.09 Other disorders of plasma-protein metabolism, not elsewhere classified; N48.6 Induration penis plastica; Y24.8XXS Other firearm discharge, undetermined intent, sequela; E27.8 Other specified disorders of adrenal gland; M41.9 Scoliosis, unspecified; Z68.20 Body mass index [BMI] 20.0-20.9, adult
CPT/HCPCS: 36415; 70030-TC; 71045; 76770; 82652; 83735; 83970; 84100; 84153; 84155; 84165; 84443; 85025; 93005; A4663; G0480; J2060